=== PATIENT | female | born 1990 | race African-American/Black ===

== ENCOUNTER 2024-04-02 19:28 | Emergency (ER) | payer OTHER ==
[2024-04-02 19:31] VITALS: BP 111/72; PULSE 75; RESP 18; TEMP 98.3; BMI 35.1
[2024-04-02] MEDS ORDERED: ACETAMINOPHEN INJECTION 100 ML IVPB ONE (20:46)
[2024-04-02] MEDS: ACETAMINOPHEN 1000 MG/100 ML BAG IVPB ONE (20:49)
[2024-04-02 20:50] LABS: BASO % 0.2 % (0-2.0); HEMATOCRIT 35.3 % (32.4-45.2); HEMOGLOBIN 11.8 GM/dL (10.7-15.3); LYMPH % 43.5 % (8-40); MCH 27.7 pg (25.7-33.7); MCHC 33.4 g/dl (32.0-36.0); MEAN CELL VOLUME 83.1 fl (80-96); MEAN PLT VOLUME 7.7 fl (7.5-11.1); MONO % 9.1 % (3.8-10.2); NEUT % 45.2 % (42.8-82.8); PLATELET COUNT 200 10^3/uL (134-434); RBC 4.24 M/mm3 (3.60-5.2); RDW 14.4 % (11.6-15.6); WHITE BLOOD COUNT 4.5 K/mm3 (4.0-10.0)
[2024-04-02 21:15] LABS: POTASSIUM 3.7 mmol/L (3.5-5.1)
[2024-04-02 21:17] LABS: BLOOD UREA NITROGEN 9.5 mg/dL (7-18); CALCIUM 9.1 mg/dL (8.5-10.1)
[2024-04-02 21:18] LABS: ALBUMIN 3.8 g/dl (3.4-5.0)
[2024-04-02 21:21] LABS: CREATININE 0.8 mg/dL (0.55-1.3)
[2024-04-02 21:22] LABS: BILIRUBIN,TOTAL 0.5 mg/dL (0.2-1); TOT PROT 7.4 g/dl (6.4-8.2)
[2024-04-02] MEDS: KETOROLAC TROMETHAMINE 15 MG/ML VIAL IVPUSH ONE (21:32)
== END 2024-04-02 21:36 | disposition home or self-care (01) ==
LOC: JER 19:28
PROC: 3E033NZ Introduction of Analgesics, Hypnotics, Sedatives into Peripheral Vein, Percutaneous Approach (ICD-10-PCS; principal; 2024-04-02)
DX: N94.6 Dysmenorrhea, unspecified (principal); R10.30 Lower abdominal pain, unspecified
CPT/HCPCS: 36415; 80053; 84703; 85025; 86850; 86900; 86901; 99284-25; J0131